=== PATIENT | female | born 1975 | race Caucasian/White ===

== ENCOUNTER 2019-06-28 18:27 | Emergency (ER) | payer OTHER, MEDICAID, SELFPAY ==
[2019-06-28 18:44] VITALS: BP 126/89; PULSE 100; RESP 16; TEMP 37.8; O2SAT 96; BMI 31.0
[2019-06-28 18:48] LABS: Add Manual Diff / Slide Review NO; Basophils Absolute Auto 0 /uL (0-100); Basophils Percent Auto 0.5 % (0-2); Eosinophils Absolute Auto 100 /uL (0-450); Eosinophils Percent Auto 0.9 % (2-4); Hematocrit 37.2 % (36-46); Hemoglobin 13.8 g/dL (12.0-16.0); Lymphocytes Absolute Auto 1200 /uL (1100-4500); Lymphocytes Percent Auto 12.5 % (25-40); Mean Corpuscular HGB Conc 37.1 % (30-36); Mean Corpuscular Hemoglobin 30.9 PG (26-34); Mean Corpuscular Volume 83.4 fL (80-100); Monocytes Absolute Auto 1100 /uL (0-900); Monocytes Percent Auto 11.7 % (3-14); Neutrophils Absolute Auto 7100 /uL (1500-7000); Neutrophils Percent Auto 74.4 % (50-75); Platelet Count 175 X10^3/uL (150-400); Red Blood Cell Count 4.46 X10^6/uL (4.0-5.2); Red Cell Distribution Width 13.8 % (11.6-14.8); White Blood Cell Count 9.6 X10^3/uL (4.5-11.0)
[2019-06-28] MEDS: SODIUM CHLORIDE 0.9% 1,000 ML 1000 ML IV (18:50)
--- NOTE | 2019-06-28 18:52 | ED_ITS ---
HPI - URI/Sore Throat General Chief Complaint: Upper Respiratory Symptoms Stated Complaint: High fever, vomiting t-5 Time Seen by Provider: 06/28/19 18:32 Mode of arrival: Ambulatory History of Present Illness HPI Narrative: 43-year-old female presents emergency department complaining of fevers, cough, vomiting, and diarrhea for the past 4-5 days. She states her children have been sick as well but she continues to have a cough, myalgias, and symptoms. She states she often coughs so hard she vomits but also occasionally feels nauseated as well. She states the left side of her ribs hurt when she is in the middle of her coughing fits. Patient states she has intermittent bouts of abdominal cramping before vomiting. She denies shortness of breath, syncope, head trauma, or other concerns. She is unsure if she got her flu shot. Related Data Previous Rx's Medication Instructions Recorded ibuprofen 600 mg PO Q6HP #30 08/10/12 azithromycin See Rx Instructions .ROUTE 06/28/19 .COMPLEX #6 tab Allergies Allergy/AdvReac Type Severity Reaction Status Date / Time dextromethorphan Allergy Unknown Unverified 10/09/17 12:55 [From Robitussin Cough & Cold CF] guaifenesin Allergy Unknown Unverified 10/09/17 12:55 [From Robitussin Cough & Cold CF] phenylephrine Allergy Unknown Unverified 10/09/17 12:55 [From Robitussin Cough & Cold CF] oxycodone AdvReac Mild CONSTIPATIO Unverified 10/09/17 12:55 N Review of Systems Review of Systems Narrative: REVIEW OF SYSTEMS: GENERAL: Denies fever, chills, malaise, or wt. loss. HENT: No head trauma, sore throat, or dysphagia. EYES: No loss of vision, double vision, eye pain, or irritation. CARDIOVASCULAR: No chest pain, palpitations, or orthopnea. RESPIRATORY: No shortness of breath or cough. GASTROINTESTINAL: Complains of vomiting, see HPI. GENITOURINARY: No flank pain, urinary incontinence, hesitancy, frequency, or dysuria. No vaginal discharge or dyspareunia. Denies concerns for STIs MUSCULOSKELETAL: No pain, weakness, or trauma. INTEGUMENTARY: No rash, lesions, or pruritus. NEURO: No numbness, tingling, memory loss, confusion, or headaches. PSYCH: No behavior or mood changes. Patient History Social History Smoking Status: Current every day smoker Smoking Status: Current every day smoker alcohol intake frequency: a few times a week Substance Use Type: does not use Exam Initial Vital Signs Initial Vital Signs: Vital Signs Temperature 100.1 F H 06/28/19 18:44 Pulse Rate 100 H 06/28/19 18:44 Respiratory Rate 16 06/28/19 18:44 Blood Pressure 126/89 06/28/19 18:44 Pulse Oximetry 96 06/28/19 18:44 PHYSICAL EXAMINATION: GENERAL: Well groomed, alert, and cooperative. Answers questions promptly and appropriately. Vital signs noted. HENT: Normocephalic, atraumatic. Hearing intact. Oral mucosa is pink and moist. EYES: Conjunctiva pink, sclera white, no periorbital swelling. CARDIOVASCULAR: S1 and S2 sounds normal. Regular rate and rhythm, no murmurs, clicks, or bruits. No pedal edema. RESPIRATORY: Normal respiratory rate, trachea midline, airway patent. No stridor, nasal flaring or accessory muscle use. Occasional scattered rhonchi heard on expiration. No crackles. Productive cough noted throughout examination. GASTROINTESTINAL: Bowel sounds normoactive. Abdomen is soft and non-tender. No organomegaly, no palpable masses. GENITALURINARY: No flank tenderness. MUSCULOSKELETAL: Normal gait and coordination. Equal tone and mass bilaterally. EXTREMITIES: CMS intact, no pedal edema. SKIN: Warm, dry, soft, appropriate color for ethnicity. No lesions, rashes, or wounds. NEURO: Alert and Oriented X 3. Good coordination. No ataxia, or sensory deficits, or cognitive issues. PSYCH: Appropriate affect and mood. Scores CURB-65 Confusion: No BUN >19mg/dL (>7mmol/L): No Respiratory rate greater or equal to 30: No SBP <90mmHg or DBP less or equal to 60mmHg: No Age 65 or Older: No CURB-65 Total: 0 Score 0-1 Outpatient care, Score 2 Inpt vs. Obs, Score 3 or over Inpt admit with ICU for score of 4-5 Course Course Course Narrative: Patient was given IV Toradol, 1 L fluids, and IV ondansetron. She reported she was feeling much better after the administration of the above medications. Orders Ordered: ED Orders 06/28/19 18:38 Influenza A & B (PCR) Stat 06/28/19 18:42 CMP [Comprehensive Metabolic Panel] Stat Complete Blood Count AUTO DIFF Stat 06/28/19 18:53 XR chest 1V Stat Discontinued Medications Azithromycin (Zithromax) 500 mg PO NOW ONE Stop: 06/28/19 20:01 Last Admin: 06/28/19 20:08 Dose: 500 mg Documented by: AVIVA Sodium Chloride (Normal Saline 0.9%) 1,000 mls @ 1,000 mls/hr IV BOLUS ONE Stop: 06/28/19 19:57 Last Infusion: 06/28/19 19:51 Dose: 0 mls/hr Documented by: Admin: 06/28/19 18:50 Dose: 1,000 mls/hr Documented by: AVIVA Ketorolac Tromethamine (Toradol) 30 mg IV NOW ONE Stop: 06/28/19 18:53 Last Admin: 06/28/19 18:57 Dose: 30 mg Documented by: AVIVA Ondansetron HCl (Zofran) 4 mg IV NOW ONE Stop: 06/28/19 18:53 Last Admin: 06/28/19 18:57 Dose: 4 mg Documented by: AVIVA Vital Signs Vital signs: Vital Signs - 8 hr 06/28/19 18:44 06/28/19 19:07 06/28/19 20:21 Temperature 100.1 F H Pulse Rate 100 H 95 H 75 Respiratory Rate 16 17 16 Blood Pressure 126/89 118/72 Blood Pressure [Left Arm] 126/89 Pulse Oximetry 96 97 99 MDM - URI/Sore Throat Medical Records Attestation: I reviewed the patient's medical records. Lab Data Attestation: I reviewed the patient's lab results. Result diagrams: 06/28/19 18:42 06/28/19 18:42 Labs: Lab Results 06/28/19 06/28/19 06/28/19 Range/Units 18:38 18:42 18:42 WBC 9.6 (4.5-11.0) X10^3/uL RBC 4.46 (4.0-5.2) X10^6/uL Hgb 13.8 (12.0-16.0) g/dL Hct 37.2 (36-46) % MCV 83.4 (80-100) fL MCH 30.9 (26-34) PG MCHC 37.1 H (30-36) % RDW 13.8 (11.6-14.8) % Plt Count 175 (150-400) X10^3/uL Neut % (Auto) 74.4 (50-75) % Lymph % (Auto) 12.5 L (25-40) % Morgan % (Auto) 11.7 (3-14) % Eos % (Auto) 0.9 L (2-4) % Baso % (Auto) 0.5 (0-2) % Neut # (Auto) 7100 H (9087-8294) /uL Lymph # (Auto) 1200 (8227-5285) /uL Morgan # (Auto) 1100 H (0-900) /uL Eos # (Auto) 100 (0-450) /uL Baso # (Auto) 0 (0-100) /uL Sodium 135 L (137-145) mmol/L Potassium 4.2 (3.4-5.1) mmol/L Chloride 101 (98-107) mmol/L Carbon Dioxide 23 (22-32) mmol/L BUN 12 (7-17) mg/dL Creatinine 0.80 (0.52-1.04) mg/dL Estimated GFR > 60.0 (>60) mL/min BUN/Creatinine Ratio 15.0 (6-22) Glucose 106 H (70-100) mg/dL Calcium 8.8 (8.4-10.2) mg/dL Total Bilirubin 1.2 (0.2-1.3) mg/dL AST 55 H (14-36) IU/L ALT 46 H (<35) IU/L Alkaline Phosphatase 70 (38-126) U/L Total Protein 7.1 (6.3-8.2) g/dL Albumin 4.2 (3.5-5.0) g/dL Globulin 2.9 (1.7-4.1) g/dL Albumin/Globulin Ratio 1.4 (1.0-2.8) Influenza A (RT-PCR) Flu a negative (NEGATIVE) Influenza B (RT-PCR) Flu b negative (NEGATIVE) Imaging Data Chest x-ray: Radiologist's Impression: [address] [address] XRay Report Signed Patient: Magda Mercer#: [id number] : 1975Acct:[id number] Age/Sex: 43 / FDate of Service: 06/28/19 Loc: ED Accession Number: [id number] Procedure: XR chest 1V Ordering Provider: Leah Vásquez PROCEDURE: XR CHEST 1V INDICATIONS: Cough TECHNIQUE: One view of the chest was acquired. COMPARISON: None. FINDINGS: Surgical changes and devices: None. Lungs and pleura: Bilateral lower lobe infiltrates consistent with pneumonia. No pleural effusions or pneumothorax. Mediastinum: Mediastinal contours appear normal. Heart size is normal. Bones and chest wall: No suspicious bony lesions. Overlying soft tissues appear unremarkable. IMPRESSION: Bilateral lower lobe pneumonia. Dictated by: Zachariah Wilson M.D. on 06/28/2019 at 19:16 Approved by: Zachariah Wilson M.D. on 06/28/2019 at 19:21 [facility] Narrative Medical decision making narrative: 43-year-old female presents emergency department for fever, fatigue, and paroxysmal cough. Chest x-ray shows bilateral lower and lobe pneumonia. Patient tested negative for influenza. She was prescribed azithromycin. Less likely sepsis due to lack of systemic symptoms such as tachycardia, white blood cell count, or high fever. Patient's curb 65 score was 0, she meets criteria for outpatient treatment. She was encouraged to drink lots of fluids and get adequate amount of rest. Patient was encouraged to follow up with her primary care provider in 1-2 weeks for re- evaluation. Patient and verbalized understanding and agreement with care. Discharge Plan Departure Patient Disposition: Home Clinical Impression: Pneumonia Qualifiers: Pneumonia type: due to unspecified organism Laterality: bilateral Lung location: lower lobe of lung Qualified Code(s): J18.9 - Pneumonia, unspecified organism Discharge Date/Time: 06/28/19 20:21 Instructions: DI for Pneumonia -- Adult Activity Restrictions/Additional Instructions: Thank you for entrusting me with your care today. As discussed, her chest x-ray shows pneumonia. You're negative for influenza. Your labs indicate your liver enzymes are slightly high, please follow-up with her primary care provider about this and decreased alcohol intake. I prescribed you an antibiotic, please take this as directed. Please consume lots of fluids and get extra rest. Return emergency department for new or worsening symptoms such as increased shortness of breath, chest pain, high fevers that do not decreased with Tylenol ibuprofen, or other concerns. Prescriptions: New azithromycin 250 mg tablet See Rx Instructions .ROUTE .COMPLEX Qty: 6 RF: 0 No Action ibuprofen 600 MG tablet 600 mg PO Q6HP Qty: 30 RF: 2 Referrals: Ambrocio Fair ARNP [Primary Care Provider] -
[2019-06-28] MEDS: KETOROLAC 60 MG/2 ML VIAL 30 MG IV (18:57)
[2019-06-28] MEDS: ONDANSETRON 4 MG/2 ML INJ IV (18:57)
[2019-06-28 19:03] LABS: Alanine Aminotransferase 46 IU/L (<35); Albumin 4.2 g/dL (3.5-5.0); Albumin Globulin Ratio 1.4 (1.0-2.8); Alkaline Phosphatase 70 U/L (38-126); Aspartate Aminotransferase 55 IU/L (14-36); Bilirubin Total 1.2 mg/dL (0.2-1.3); Blood Urea Nitrogen 12 mg/dL (7-17); Calcium 8.8 mg/dL (8.4-10.2); Carbon Dioxide 23 mmol/L (22-32); Chloride 101 mmol/L (98-107); Estimated Glomerular Filt Rate > 60.0 mL/min (>60); Globulin 2.9 g/dL (1.7-4.1); Glucose 106 mg/dL (70-100); HEMOLYSIS < 15 (0-50); Potassium 4.2 mmol/L (3.4-5.1); Sodium 135 mmol/L (137-145); Total Protein 7.1 g/dL (6.3-8.2)
[2019-06-28 19:07] VITALS: BP 126/89; PULSE 95; RESP 17; O2SAT 97
[2019-06-28 19:50] LABS: Influenza A - CEPHEID Flu A NEGATIVE (NEGATIVE); Influenza B - CEPHEID Flu B NEGATIVE (NEGATIVE)
[2019-06-28] MEDS: AZITHROMYCIN 250 MG TABLET 500 MG PO (20:08)
[2019-06-28 20:21] VITALS: BP 118/72; PULSE 75; RESP 16; O2SAT 99
== END 2019-06-28 20:21 | disposition home or self-care (01) ==
PROVIDERS: Emergency Provider Nurse Practitioner; Family Provider Registered Nurse; PCP Registered Nurse
DX: J18.9 Pneumonia, unspecified organism (principal); R19.7 Diarrhea, unspecified
CPT/HCPCS: 36415; 71045; 80053; 85025; 87502; 96361; 96374; 96375; 99284; J1885; J2405

== ENCOUNTER → 2021-12-29 15:54 | Outpatient (CLI) | payer OTHER, MEDICAID, SELFPAY ==
--- NOTE | 2021-12-29 | DI.RAD.S_ITS ---
PROCEDURE: XR FOOT RT MIN 3V INDICATIONS: Plantar Fascitis TECHNIQUE: 3 views of the foot were acquired. COMPARISON: [facility], , FOOT 3V RIGHT, 12/04/2014, 20:19. FINDINGS: Bones: No fractures or dislocations. No suspicious bony lesions. Mild hallux valgus metatarsus prima varus alignment and medial bunion. Mild 1st MTP and diffuse interphalangeal joint space narrowing with periarticular osteophyte formation. Soft tissues: No tibiotalar joint effusion. Achilles tendon appears normal. IMPRESSION: 1. Moderate hallux valgus alignment and medial bunion. 2. Mild 1st MTP and diffuse interphalangeal joint degeneration. Dictated by: Leonard Mckeon [facility] Interpreted: Ambrocio Gore MD on 12/29/2021 at 17:02 Transcribed by: SUNITA on 12/29/2021 at 17:03 Approved by: Dominguez Gore M.D. on 01/05/2022 at 6:57
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
== END ==
PROVIDERS: Family Provider Registered Nurse; PCP Registered Nurse; Referring Provider Podiatrist Foot & Ankle Surgery; Visit Provider Podiatrist Foot & Ankle Surgery
DX: M20.12 Hallux valgus (acquired), left foot (principal); M20.11 Hallux valgus (acquired), right foot; M21.612 Bunion of left foot; M21.611 Bunion of right foot; M19.071 Primary osteoarthritis, right ankle and foot; M19.072 Primary osteoarthritis, left ankle and foot; M77.32 Calcaneal spur, left foot; M72.2 Plantar fascial fibromatosis; M76.821 Posterior tibial tendinitis, right leg
CPT/HCPCS: 73630

== ENCOUNTER → 2022-01-11 15:59 | Outpatient (CLI) | payer OTHER, SELFPAY ==
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
== END ==
PROVIDERS: Family Provider Registered Nurse; PCP Registered Nurse; Referring Provider Naturopath; Visit Provider Naturopath
DX: M50.30 Other cervical disc degeneration, unspecified cervical region (principal)
CPT/HCPCS: 72040